=== PATIENT | female | born 1950 | race Caucasian/White ===

== ENCOUNTER 2021-02-04 14:22 | Emergency (ER) | payer MEDICARE, BC, SELFPAY ==
[2021-02-04 14:40] VITALS: BP 127/61; PULSE 74; RESP 16; TEMP 37.2; O2SAT 96
--- NOTE | 2021-02-04 15:16 | ED.GENADULT ---
HPI - General Adult General Chief complaint: Wound/Laceration Stated complaint: Ambulance Source: patient Mode of arrival: EMS Limitations: no limitations History of Present Illness HPI narrative: Stephanie is a 70F with a PMH of CVA, CAD, , HLD, HTN, and asthma that was brought in to the emergency department by EMS as she could not get her bleeding to stop. She cut her left lower extremity while gardening but was able to get it to stop. However, later she cut her right lower lateral leg while shaving in the shower. She could not get the bleeding to stop so EMS was called. She has no other injuries. Related Data Home Medications Medication Instructions Recorded Confirmed aspirin [Adult Aspirin] 81 mg PO DAILY 02/04/21 02/04/21 clonidine HCl 0.4 mg PO HS 02/04/21 02/04/21 clopidogrel 75 mg PO DAILY 02/04/21 02/04/21 empagliflozin [Jardiance] 10 mg PO DAILY 02/04/21 02/04/21 escitalopram oxalate 20 mg PO DAILY 02/04/21 02/04/21 ezetimibe 10 mg PO DAILY 02/04/21 02/04/21 glipizide 20 mg PO DAILY 02/04/21 02/04/21 montelukast 10 mg PO DAILY 02/04/21 02/04/21 oxybutynin chloride 5 mg PO DAILY 02/04/21 02/04/21 pantoprazole 40 mg PO DAILY 02/04/21 02/04/21 rosuvastatin 40 mg PO DAILY 02/04/21 02/04/21 valsartan-hydrochlorothiazide 1 tablet PO DAILY 02/04/21 02/04/21 Allergies Allergy/AdvReac Type Severity Reaction Status Date / Time Unable to Assess Allergy Verified 02/04/21 14:44 Review of Systems Constitutional: Constitutional: Reports no additional constitutional complaints Eyes: Eyes: Reports no additional eye complaints ENT: Reports system reviewed and no additional complaints, except as documented Cardiovascular: Cardiovascular: Reports no additional cardiovascular complaints Respiratory: Respiratory: Reports no additional respiratory complaints Gastrointestinal: Gastrointestinal: Reports no additional gastrointestinal complaints Genitourinary: Genitourinary: Reports no additional female genitourinary complaints Musculoskeletal: Musculoskeletal: Reports no additional musculoskeletal complaints Integumentary/Breasts: Skin/Breast: Reports system reviewed and no additional complaints, except as docu Neurologic: Reports system reviewed and no additional complaints, except as documented Psychiatric: Psychiatric: Reports no additional psychiatric complaints Endocrine: Endocrine: Reports no additional endocrine complaints Hematologic/Lymphatic: Hematologic/Lymphatic: Reports no additional hematologic/lymphatic complaints Allergic/Immunologic: Allergic/Immunologic: Reports no additional allergic/immunologic complaints Exam Const: General: no acute distress and alert Orientation/consciousness: patient oriented x3 Limitations: No altered mental status HENMT: Head: normal to inspection Mouth: Yes Normal oral and palatal mucosa present Other: atraumatic Eyes: Conjunctivae: conjunctivae normal Pupils: Equal, round and reactive pupils present Neck: Neck: normal visual inspection Chest: Chest palpation & inspection: normal inspection of the chest Resp: Effort & Inspection: normal respiratory effort, not labored and no use of accessory muscles Cardio: Rate: regular rate Rhythm: regular rhythm Skin: General skin exam: normal color Rashes: no rashes Neuro: General: patient oriented x3 and moves all extremities Extrem: General: normal to inspection Other: After cutting bandages off the left lower extremity was hemostatic. There was a very small 1-2mm laceration on the right lower lateral extremity that was bleeding Psych: Appearance: grossly normal Mental Status: mental status grossly normal Course Course Emergency Course: The bleeding was stopped using silver nitrate sticks and pressure without complication. Vital Signs Vital signs: Vital Signs Temperature 99 F 02/04/21 14:40 Pulse Rate 74 02/04/21 14:40 Respiratory Rate 16 02/04/21 14:40 Blood Pressure 127/61 02/04/21 14:40 Pulse Ox
[2021-02-04 15:31] VITALS: BP 116/60; PULSE 64; RESP 16; O2SAT 96
== END 2021-02-04 15:33 | disposition home or self-care (01) ==
PROVIDERS: Emergency Provider Family Medicine; PCP Family Medicine
DX: S81.812A Laceration without foreign body, left lower leg, initial encounter (principal); W45.8XXA Other foreign body or object entering through skin, initial encounter
CPT/HCPCS: 99282

== ENCOUNTER 2021-04-04 12:17 | Emergency (ER) | payer MEDICARE, BC, SELFPAY ==
--- NOTE | ~2021-04-04 | XR_ITS ---
EXAMINATION: XR chest 2V 04/04/2021 13:23 INDICATION: Dyspnea PROCEDURE: 2 view chest COMPARISON: 09/09/2016 FINDINGS: The lungs are clear. The cardiomediastinal silhouette is within normal limits. There are no pleural effusions. There is no pneumothorax suspected. IMPRESSION: 1: NO ACUTE CARDIOPULMONARY DISEASE. Reviewed, dictated and finalized at location A.
[2021-04-04 12:40] VITALS: BP 154/79; PULSE 66; RESP 20; TEMP 36.6; O2SAT 97
--- NOTE | 2021-04-04 12:48 | ECG_ITS ---
Measurements Intervals [place] Rate: 53 P: 53 VT: 173 QRS: 26 QRSD: 83 T: 47 QT: 451 QTc: 424 Interpretive Statements SINUS BRADYCARDIA INCOMPLETE RIGHT BUNDLE BRANCH BLOCK LOW QRS VOLTAGE IN PRECORDIAL LEADS BASELINE ARTIFACT- I, II, III, AVF BORDERLINE ECG Electronically Signed On 04-05-2021 9:06:53 CDT by Cuauhtemoc Urena D.O.
[2021-04-04 13:08] LABS: Base Excess ABG 1.8 mmol/L (0-2); HCO3 ABG 25.7 mmol/L (23-29); Oxygen Content ABG 19.2 %vol (16.0-22.0); Oxygen Saturation ABG 95.9 % (95-97); Oxyhemoglobin 95.3 % (94-100); PCO2 ABG 37.9 mmHg (35-45); PO2 ABG 83.8 mmHg (75-85); Total Hemoglobin 14.3 g/dL (12.0-18.0); pH ABG 7.45 (7.35-7.45)
[2021-04-04 13:11] LABS: Basophils Absolute Auto 0.03 K/mm3 (0.00-0.10); Basophils Percent Auto 0.5 % (0.0-1.0); Eosinophils Absolute Auto 0.38 K/mm3 (0.02-0.50); Eosinophils Percent Auto 6.3 % (1.0-6.0); Hemoglobin 13.6 g/dL (11.7-13.8); Immature Granulocyte Absolute 0.02 K/mm3 (0.00-0.00); Immature Granulocyte Percent A 0.3 % (0.0-0.0); Lymphocytes Absolute Auto 1.39 K/mm3 (1.10-4.50); Lymphocytes Percent Auto 23.1 % (18.0-42.0); Mean Corpuscular Hemoglobin 31.4 pg (27.0-31.0); Mean Corpuscular Volume 92.4 fL (78.0-102.0); Mean Platelet Volume 9.8 fl (9.2-11.8); Monocytes Absolute Auto 0.56 K/mm3 (0.10-0.90); Monocytes Percent Auto 9.3 % (2.0-11.0); Neutrophils Absolute Auto 3.7 K/mm3 (1.7-7.2); Neutrophils Percent Auto 60.5 % (50.0-70.0); Platelet Count Result 220 K/mm3 (150-420); Red Blood Count 4.33 M/mm3 (4.20-5.40); Red Cell Distribution Width 12.7 % (11.6-14.4)
[2021-04-04 13:15] LABS: Modified Allen's Test Pass; Site Drawn RIGHT RADIAL
[2021-04-04 13:16] LABS: Device ROOM AIR
[2021-04-04 13:27] LABS: D Dimer 0.26 mg/L (0.19-0.50); Partial Thromboplastin Time 28.9 SEC (23.90-30.70); Prothrombin Time 10.8 Seconds (9.50-12.10)
[2021-04-04 13:35] LABS: Alanine Aminotransferase 30 U/L (14-59); Albumin Level 4.2 g/dL (3.4-5.0); Alkaline Phosphatase 110 U/L (46-116); Anion Gap 10 mmol/L (8-16); Aspartate Amino Transferase 18 U/L (15-37); Bilirubin,Total 0.5 mg/dL (0.00-1.00); Blood Urea Nitrogen 25 mg/dL (7-18); Calcium 9.3 mg/dL (8.5-10.1); Carbon Dioxide 29 mmol/L (21-32); Chloride 101 mmol/L (98-108); Estimated CRCL calculation 54 ml/min; Estimated Glomerular Filt Rate 56; Glucose 144 mg/dL (70-99); NT Pro B Type Natriuretic Pept 135 pg/mL (0-125); Osmolality Calculated 297 mOsm/kg (285-295); Sodium 140 mmol/L (136-145); Total Protein 7.5 g/dL (6.4-8.2); Troponin I 4.4 ng/L (0.00-60.4)
[2021-04-04 13:42] LABS: SARS-CoV-2 Ag Negative (Negative)
--- NOTE | 2021-04-04 14:02 | ED.LOWEXIN ---
HPI - Extremity Injury (Lower) General Chief Complaint: Extremity Injury, Lower Stated Complaint: nausea, R lower leg pain pressure , SOB Source: patient and family Mode of arrival: ambulatory Limitations: no limitations History of Present Illness HPI Narrative: this is a 71-year-old female that has history of varicose veins and history of stroke currently on aspirin is having pain in the anterior surface of her right lower leg with some varicose veins that peer protrude in warm and tender with no fever chills patient appears anxious although not short of breath O2 sats are 97% on room air vitals are stable there is no chest pain no nausea vomiting or abdominal pain. Onset (ago): day(s) Related Data Home Medications Medication Instructions Recorded Confirmed aspirin [Adult Aspirin] 81 mg PO DAILY 02/04/21 04/04/21 clonidine HCl 0.4 mg PO HS 02/04/21 04/04/21 clopidogrel 75 mg PO DAILY 02/04/21 04/04/21 escitalopram oxalate 20 mg PO DAILY 02/04/21 04/04/21 ezetimibe 10 mg PO DAILY 02/04/21 04/04/21 glipizide 20 mg PO DAILY 02/04/21 04/04/21 oxybutynin chloride 5 mg PO DAILY 02/04/21 04/04/21 pantoprazole 40 mg PO DAILY 02/04/21 04/04/21 rosuvastatin 40 mg PO DAILY 02/04/21 04/04/21 valsartan-hydrochlorothiazide 1 tablet PO DAILY 02/04/21 04/04/21 albuterol sulfate 2 inh INHALATION QID PRN 04/04/21 04/04/21 bupropion HCl 300 mg PO DAILY 04/04/21 04/04/21 empagliflozin [Jardiance] 25 mg PO DAILY 04/04/21 04/04/21 insulin glargine [Lantus Solostar See Rx Instructions .ROUTE .COMPLEX 04/04/21 04/04/21 U-100 Insulin] nitroglycerin See Rx Instructions .ROUTE .COMPLEX 04/04/21 04/04/21 sucralfate See Rx Instructions .ROUTE .COMPLEX 04/04/21 04/04/21 Allergies Allergy/AdvReac Type Severity Reaction Status Date / Time No Known Allergies Allergy Verified 04/04/21 12:54 Review of Systems Review of Systems: All systems reviewed & are unremarkable except as noted in HPI and below [facility] Past Medical History Medical History History of varicose veins Exam Const: General: no acute distress Orientation/consciousness: patient oriented x3 HENMT: Head: normal to inspection Eyes: Conjunctivae: conjunctivae normal Pupils: Equal, round and reactive pupils present Neck: Neck: normal visual inspection, no lymphadenopathy and no meningeal signs Chest: Chest palpation & inspection: normal inspection of the chest Resp: Effort & Inspection: normal respiratory effort Auscultation: clear to auscultation bilaterally Cardio: Rate: regular rate Rhythm: regular rhythm GI: GI Palp: Yes Soft to palpation Percussion: Yes normal to percussion : General: Yes no CVA tenderness Neuro: General: patient oriented x3 and moves all extremities Extrem: General: normal to inspection Psych: Mental Status: mental status grossly normal Course Course Emergency Course: labs reviewed with patient x-ray EKG all reviewed with patient with no abnormalities advised patient has a phlebitis and will send antibiotics to her pharmacy advised warm compress. Vital Signs Vital signs: Vital Signs Temperature 36.6 C 04/04/21 12:40 Pulse Rate 66 04/04/21 12:40 Respiratory Rate 20 04/04/21 12:40 Blood Pressure 154/79 H 04/04/21 12:40 Pulse Oximetry 97 04/04/21 12:40 Temperature 36.6 C 04/04/21 12:40 Pulse Rate 66 04/04/21 12:40 Respiratory Rate 20 04/04/21 12:40 Blood Pressure 154/79 H 04/04/21 12:40 Pulse Oximetry 97 04/04/21 12:40 MDM - Extremity Injury (Lower) Lab Data Result diagrams: 04/04/21 13:05 04/04/21 13:05 Labs: Lab Results 04/04/21 04/04/21 04/04/21 Range/Units 12:57 13:05 13:05 WBC 6.0 (4.8-10.8) K/mm3 RBC 4.33 (4.20-5.40) M/mm3 Hgb 13.6 (11.7-13.8) g/dL Hct 40.0 (35.0-42.0) % MCV 92.4 (78.0-102.0) fL MCH 31.4 H (27.0-31.0) pg MCHC 34.0 (32.0-36.0) g/dL RDW 12.7
[2021-04-04 14:13] VITALS: BP 140/67; PULSE 60; RESP 20; O2SAT 98
== END 2021-04-04 14:23 | disposition home or self-care (01) ==
PROVIDERS: Emergency Provider Emergency Medicine; PCP Family Medicine
DX: I80.3 Phlebitis and thrombophlebitis of lower extremities, unspecified (principal); I83.91 Asymptomatic varicose veins of right lower extremity; Z86.73 Personal history of transient ischemic attack (TIA), and cerebral infarction without residual deficits; Z20.822 Contact with and (suspected) exposure to COVID-19
CPT/HCPCS: 36415; 36600; 71046; 80053; 82805; 83880; 84484; 85025; 85380; 85610; 85730; 87040; 87426; 93005; 99283; 99284; C9803

== ENCOUNTER 2025-06-20 11:00 | Outpatient (RCR) | payer MEDICARE, BC, SELFPAY ==
[2025-03-07 14:00] VITALS: PULSE 57
[2025-03-07 15:38] VITALS: BP 113/60; PULSE 57; RESP 16; O2SAT 98; BMI 29.3
== END 2025-06-20 12:00 | disposition home or self-care (01) ==
PROVIDERS: PCP Family Medicine
DX: Z98.61 Coronary angioplasty status (principal)
CPT/HCPCS: 93798